=== PATIENT | female | born 1950 | race Caucasian/White ===

== ENCOUNTER → 2017-02-28 | Outpatient (CLI) | payer BC ==
[~2017-02-28] MED LIST: ACT/15 PO; ALBU1AER9 INH; AMLO5TAB4 PO; ASPI81TA21 PO; ATOR-54 PO; DICL75TA2 PO; FLUT50SP14 NAE; HYDR25TA4 PO; LEVO75TA PO; MECL25TA2 PO; METF1000 PO; QUIN40TA18 PO; RSTOPS OP; SITA1TAB27 PO
--- NOTE | 2017-02-28 16:09 | MAMMOGRAPHY REPORT ---
BILATERAL DIGITAL SCREENING MAMMOGRAM WITH CAD: 02/28/2017 CLINICAL HISTORY: Routine screening. Patient has no complaints. TECHNIQUE: Current study was also evaluated with a Computer Aided Detection (CAD) system. Bilatera l CC and MLO views were obtained. COMPARISON: Comparison is made to exams dated: 07/27/2015 ultrasound, 07/27/2015 mammogram, 01/05/2014 mammogram, 09/28/2012 mammogram, 09/23/2011 mammogram, and 09/20/2010 mammogram - [facility]. BREAST COMPOSITION: There are scattered areas of fibroglandular density in both breasts. FINDINGS: No suspicious masses, calcifications, or areas of architectural distortion are noted in e ither breast. There has been no significant interval change compared to prior exams. Scattered bilat eral benign-appearing calcifications are not significantly changed. Benign-appearing mass in the ri ght upper outer quadrant is stable dating back to at least the 2009 exam. IMPRESSION: ACR BI-RADS CATEGORY 2: BENIGN There is no mammographic evidence of malignancy. A 1 year screening mammogram is recommended. The p atient will receive written notification of the results. Approximately 10% of breast cancers are not detected with mammography. A negative mammographic repor t should not delay biopsy if a clinically suggestive mass is present. Nimisha Ragsdale M.D. /:02/28/2017 15:48:51 Manufacturing Lead: Niurka LONDONO)([place]), [facility] letter sent: Normal 1/2 BI-RADS Code: ACR BI-RADS Category 2: Benign
== END | disposition home or self-care (01) ==
LOC: C.MAMM 15:03
PROVIDERS: ATTEND Family Medicine
DX: Z12.31 Encounter for screening mammogram for malignant neoplasm of breast (principal)